=== PATIENT | female | born 1945 ===

== ENCOUNTER 2017-05-26 22:57 | Emergency (ER) | payer MEDICARE ==
[2017-05-26 23:14] VITALS: RESP 18
--- NOTE | 2017-05-26 23:51 | C.PDOC ---
History Of Present Illness 71 y/o female presents to the ED c/o passing out at home with a duration that was 1mintue. The patient denies episode of seizures, shortness of breath, dizziness, and chest pain. Chief Complaint (Nursing): Syncope History Per: Patient History/Exam Limitations: no limitations Onset/Duration Of Symptoms: Hrs Current Symptoms Are (Timing): Still Present Additional History Per: Patient - Symptoms Of CVA Associated Symptoms: denies: Impaired Speech Past Medical History Reviewed: Historical Data, Nursing Documentation, Vital Signs Vital Signs: Last Vital Signs Temp 97.6 F 05/27/17 02:27 Pulse 63 05/27/17 02:27 Resp 18 05/27/17 02:27 BP 113/69 05/27/17 02:27 Pulse Ox 95 05/27/17 02:27 - Medical History PMH: HTN, Hyperlipidemia, Osteoporosis Denies: Chronic Kidney Disease Surgical History: Cholecystectomy - [facility] PERCUTAN NEEDLE BIOPSY OF BREAST (07/26/05) Family History: States: No Known Family Hx - Social History Hx Alcohol Use: No Hx Substance Use: No - Immunization History Hx Tetanus Toxoid Vaccination: No Hx Influenza Vaccination: Yes Hx Pneumococcal Vaccination: No Review Of Systems Except As Marked, All Systems Reviewed And Found Negative. Constitutional: Negative for: Fever, Chills Cardiovascular: Negative for: Chest Pain Respiratory: Negative for: Cough, Shortness of Breath Gastrointestinal: Negative for: Nausea Neurological: Negative for: Weakness, Confusion, Seizures, Headache, Dizziness Physical Exam - Physical Exam Appears: Non-toxic, No Acute Distress Skin: Warm, Dry Head: Normacephalic Eye(s): bilateral: Normal Inspection Oral Mucosa: Moist Neck: Supple Chest: Symmetrical Cardiovascular: Rhythm Regular Respiratory: Normal Breath Sounds, No Rales, No Rhonchi, No Wheezing Gastrointestinal/Abdominal: Soft, No Tenderness, No Guarding, No Rebound Extremity: Capillary Refill (2<sec.) Neurological/Psych: Oriented x3, Normal Speech, Normal Cognition, Other (alert and conscience and no focal deficit ) Gait: Steady ED Course And Treatment - Laboratory Results Result Diagrams: 05/27/17 00:01 05/27/17 00:01 ECG: Interpreted By Me, Viewed By Me ECG Rhythm: Sinus Rhythm ECG Interpretation: No Acute Changes, No Changes From Prior Interpretation Of ECG: NSR, poor R Wave progression V1 to V3 Rate From EC O2 Sat by Pulse Oximetry: 99 (RA) Progress Note: Blood work, EKG, and Ct scan was performed. NIHSS Stroke Scale - Date/Time Evaluation Performed Date Performed: 05/26/17 Time Performed: 23:50 When Was NIHSS Performed: Baseline - How Severe is the Stoke Level of Consciousness: 0=Alert LOC to Questions: 0=Both comments correct LOC to commands: 0=Obeys both correctly Best Gaze: 0=Normal Visual: 0=No visual loss Facial: 0=Normal Motor Arm - Left: 0=No drift Motor Arm - Right: 0=No drift Motor Leg - Left: 0=No drift Motor Leg - Right: 0=No drift Limb Ataxia: 0=Absent Sensory: 0=Normal Best Language: 0=No aphasia Dysarthia: 0=Normal articulation Extinction & Inattention (Neglect): 0=Normal, no object Score: 0 Severity Of Stroke: 0= No Stroke Medical Decision Making Medical Decision Making: IMPRESSION: No CT evidence of acute intracranial abnormality. Disposition Discussed With Dr.: Karl Lopez Jr. Doctor Will See Patient In The: Hospital Counseled Patient/Family Regarding: Diagnosis - Disposition Disposition: HOSPITALIZED Disposition Time: 02:07 Condition: STABLE - POA Present On Arrival: None - Clinical Impression Clinical Impression: Syncope - Scribe Statement The provider has reviewed the documentation as recorded by the Scribe Provider Attestation: Qian Parra All medical record entries made by the Scribe were at my direction and personally dictated by me. I have reviewed the chart and agree that the record accurately reflects my personal performance of the history, physical exam, medical decision making, and the department course for this patient. I have also personally directed, reviewed, and agree with the discharge instructions and disposition.
[2017-05-27 00:09] LABS: BASO # 0.1 K/uL (0.0-0.2); BASO % 0.7 % (0.0-2.0); EOS # 0.1 K/uL (0.0-0.7); HEMATOCRIT 30.8 % (34.0-47.0); LYMPH # 1.6 K/uL (1.0-4.3); LYMPH % 14.5 % (20.0-40.0); MEAN CELL VOLUME 71.6 fL (81.0-99.0); MEAN CORPUSCULAR HEMOGLOBIN 22.2 pg (27.0-31.0); MEAN PLATELET VOLUME 11.9 fL (7.2-11.7); MONO # 0.8 K/uL (0.0-0.8); MONO % 7.6 % (0.0-10.0); RED CELL DISTRIBUTION WIDTH 17.2 % (11.5-14.5); WHITE BLOOD COUNT 10.9 K/uL (4.8-10.8)
[2017-05-27 00:15] LABS: INR 0.9
[2017-05-27 00:59] LABS: ALB/GLOB RATIO 1.1 (1.0-2.1); ALKALINE PHOSPHATASE 71 U/L (38-126); ALT/SGPT 30 U/L (9-52); AST/SGOT 19 U/L (14-36); BILIRUBIN,TOTAL 0.4 mg/dL (0.2-1.3); BLOOD UREA NITROGEN 39 mg/dL (7-17); CALCIUM 8.7 mg/dl (8.6-10.4); CARBON DIOXIDE 23 mmol/L (22-30); CHLORIDE 98 mmol/L (98-107); GFR AFRICAN-AMERICAN 45; GLUCOSE,RANDOM 101 mg/dL (65-105); SODIUM 137 mmol/L (132-148); TOTAL PROTEIN 8.5 g/dL (6.3-8.3)
[2017-05-27 03:38] VITALS: BP 118/70; PULSE 67; TEMP 98; O2SAT 99
--- NOTE | 2017-05-27 15:36 | CT ---
PROCEDURE: CT HEAD WITHOUT CONTRAST. HISTORY: Headache COMPARISON: No prior study available for comparison. TECHNIQUE: Axial computed tomography images were obtained through the head/brain without intravenous contrast. Radiation dose: Total exam DLP = 834.94 mGy-cm. This CT exam was performed using one or more of the following dose reduction techniques: Automated exposure control, adjustment of the mA and/or kV according to patient size, and/or use of iterative reconstruction technique. FINDINGS: HEMORRHAGE: No acute parenchymal, subarachnoid or extra-axial hemorrhage. BRAIN: There appears to be some very mild diffuse/confluent chronic deep and subcortical white matter ischemic changes both cerebral hemispheres. . . There is a small round/elliptical shaped calcification within right parasagittal posterior margin of the interhemispheric fissure felt to represent a dural based calcification however the possibility of a small calcified meningioma cannot be completely excluded. Ventricular and sulcal size are within range of normal for this patient's stated age. VENTRICLES: No obstructive hydrocephalus. No hydrocephalus. CALVARIUM: No acute calvarial fracture seen. PARANASAL SINUSES: Unremarkable as visualized. No significant inflammatory changes. MASTOID AIR CELLS: Unremarkable as visualized. No inflammatory changes. OTHER FINDINGS: None. IMPRESSION: No evidence of acute intracranial hemorrhage. Mild diffuse/confluent chronic appearing deep and subcortical white matter ischemic changes.
== END 2017-05-27 03:50 | disposition left against medical advice (07) ==
LOC: C.ER 22:57 → C.9I 05-27 02:08 → UNDOADMOB 05-27 02:08 → C.ER 05-27 03:50
DX: R55 Syncope and collapse (principal)